=== PATIENT | female | born 1965 | race Caucasian/White ===

== ENCOUNTER → 2023-06-20 | Outpatient (CLI) | payer OTHER ==
--- NOTE | 2023-06-20 16:09 | XR ---
EXAMINATION TYPE: XR hand complete RT DATE OF EXAM: 06/20/2023 COMPARISON: None HISTORY: Osteoarthritis, swelling third digit and wrist TECHNIQUE: Three-view right hand FINDINGS: Soft tissues appear normal. Mild diffuse joint space narrowing may be present. No acute fra ctures evident. Follow up exams can be performed as clinically indicated IMPRESSION: 1. No suspicious acute changes 2. Mild joint space narrowing.
== END | disposition home or self-care (01) ==
LOC: RADXRMAIN 15:42
PROVIDERS: ATTEND Internal Medicine
DX: M19.041 Primary osteoarthritis, right hand (principal)